=== PATIENT | male | born 1960 | race Caucasian/White ===

== ENCOUNTER 2025-05-09 06:28 | Emergency (ER) | payer MEDICARE, OTHER, SELFPAY ==
[2025-05-09] MEDS ORDERED: Acetaminophen 500 MG TAB ONE (07:02)
[2025-05-09] MEDS ORDERED: Acetaminophen 325 MG TAB ONE (07:07)
[2025-05-09 07:18] LABS: #Basophils 0.1 thou/uL (0.0-0.2); #Eosinophils 0.0 thou/uL (0.0-0.7); #Lymphocytes 0.7 thou/uL (1.20-3.40); #Monocytes 0.1 thou/uL (0.11-0.59); #Neutrophils 7.6 thou/uL (1.40-6.50); %Basophils 0.9 % (0.0-1.0); %Eosinophils 0.1 % (0.0-10.0); %Lymphocytes 8.0 % (21.0-51.0); %Monocytes 1.4 % (0.0-10.0); %Neutrophils 89.5 % (42.0-75.0); Hematocrit 39.0 % (42.0-52.0); Hemoglobin 13.9 g/dL (14.0-18.0); Mean Corpuscular Hemoglobin 28.9 pg (27.0-31.0); Mean Corpuscular Volume 81.2 fl (78.0-98.0); Platelet Adequacy Comment Appears Decreased; Platelet Count 100 10x3/uL (130-400); Red Blood Cell (RBC) Count 4.80 mill/uL (4.70-6.10); White Blood Cell (WBC) Count 8.5 10x3/uL (4.8-10.8)
[2025-05-09 07:22] LABS: ALT (SGPT) 16 U/L (Less than 45); AST (SGOT) 17 U/L (11-34); Albumin 3.7 g/dL (3.1-4.5); Alkaline Phosphatase 57 U/L (40-110); Anion Gap 16 mmol/L (10-20); BUN (Urea Nitrogen) 30 mg/dL (8.4-25.7); Bilirubin, Total 1.0 mg/dL (0.3-1.2); CK (CPK) 74 U/L (30-200); Calc. Creatinine Clearance 0 mL/min (70-130); Calcium 8.6 mg/dL (7.8-10.44); Carbon Dioxide 21 mmol/L (23-31); Chloride 106 mmol/L (98-107); Globulin 2.7 g/dL (2.4-3.5); Glucose 103 mg/dL (80-115); Magnesium 1.8 mg/dL (1.6-2.6); Potassium 3.9 mmol/L (3.5-5.1); Sodium 139 mmol/L (136-145)
[2025-05-09 07:28] LABS: MDiff Complete? YES; Manual Diff?? NO
[2025-05-09 10:13] LABS: Glucose, Urine (Dipstick) Negative (Negative); Leukocyte Small (Negative); Protein, Urine (Dipstick) 30 mg/dL (Neg-Trace); Specific Gravity, Urine 1.020 (1.005-1.030)
[2025-05-09 10:20] LABS: Bacteria/HPF 1+ HPF (None Seen); CAUTI Indications for Culture Dysuria,urgency,freq; WBC/HPF 21-50 HPF (0-3)
[2025-05-09 10:22] LABS: Urine Culture Reflex Yes Yes
[2025-05-09] MEDS ORDERED: Iopamidol 370 76% 100 ML VIAL ONE (15:08)
== END 2025-05-09 12:00 | disposition short-term general hospital (02) ==
LOC: EDBD 06:28 → BURERS 06:28
DX: A41.9 Sepsis, unspecified organism (principal); J20.9 Acute bronchitis, unspecified; J96.00 Acute respiratory failure, unspecified whether with hypoxia or hypercapnia; E86.0 Dehydration; D64.9 Anemia, unspecified; N39.0 Urinary tract infection, site not specified; N28.89 Other specified disorders of kidney and ureter; I10 Essential (primary) hypertension; E78.00 Pure hypercholesterolemia, unspecified; Z79.899 Other long term (current) drug therapy
CPT/HCPCS: 36415; 51702; 71250; 71275; 74176; 74177; 80053; 81001; 82550; 83605; 83735; 83880; 85025; 87040; 87077; 87081; 87086; 87149; 87186; 87428; 87430; 96361; 96365; 96375; J0692; J2919; J3373; J7612; Q9967